=== PATIENT | male | born 1985 | race Caucasian/White ===

== ENCOUNTER 2019-01-25 12:54 | Emergency (ER) | payer MEDICAID, SELFPAY ==
[2019-01-25] VITALS (10 sets, daily range): BP systolic 120–152; BP diastolic 70–88; PULSE 65–87; RESP 12–18; TEMP 36.6; O2SAT 92–99; BMI 37.8
--- NOTE | 2019-01-25 13:24 | RAD_ITS ---
STUDY: X-RAY - ACUTE ABDOMINAL SERIES REASON FOR EXAM: Male, 33 years old. Abdominal pain TECHNIQUE: Single view of the chest. Supine, and erect view(s) of the abdomen were obtained. COMPARISON: None. FINDINGS: The lungs are clear and expanded. Normal size heart. Normal mediastinum and larry. Normal visualized pulmonary arteries. Normal visualized aortic arch and descending thoracic aorta. There is a non-specific bowel gas pattern. The soft tissue structures of the abdomen and pelvis are unremarkable. Normal visualized osseous structures. RAD/Acute Abdomen Inc Chest IMPRESSION: Normal x-ray examination of the chest, abdomen, and pelvis. Electronically Signed: Josiah Peters MD at 14:11 EDT Tel , Service support ,
[2019-01-25 13:34] LABS: Absolute Lymphocyte Count 2.15 X10^3/uL (0.83-4.51); Basophil# 0.05 X10^3/uL; Basophil% 0.5 % (0-1); Eosinophil# 0.14 X10^3/uL; Eosinophils% 1.4 % (0-5); Hematocrit 47.6 % (40-54); Hemoglobin 16.7 g/dL (13.0-16.5); Lymphocyte # 2.15 X10^3/ul (4.0); Lymphocyte % 21.1 % (19-41); Mean Corp Hgb Conc 35.1 g/dL (32-36); Mean Corpuscular Hgb 32.2 pg (27.0-32.0); Mean Corpuscular Volume 91.9 fL (80-94); Mean Platelet Vol. 10.6 fl (6.2-12.0); Monocyte# 0.85 X10^3/uL; Monocyte% 8.3 % (0-10); NRBC Flagged by Analyzer 0 % (0-5); Neutrophil # 6.96 X10^3/uL (2.7-7.7); Neutrophil % 68.4 % (47-70); Platelet Count 330 K/mm3 (150-450); RBC Distribution Width CV 12.5 % (11.6-14.6); RBC Distribution Width SD 42.3 fl (35.1-43.9); Red Blood Count 5.18 M/mm3 (4.6-6.2); White Blood Count 10.2 K/mm3 (4.4-11.0)
[2019-01-25 13:44] LABS: Partial Thromboplast Time 27.1 Seconds (24.1-36.2); Prothrombin Time (Protime)PT. 13.2 SECONDS (11.7-14.9)
[2019-01-25 13:52] LABS: AST(SGOT) 37 U/L (15-37); Alanine Aminotransfer ALT/SGPT 63 U/L (16-61); Albumin, Serum 4.3 g/dL (3.2-5.0); Alkaline Phosphatase 65 U/L (45-117); Anion Gap 7 (5-15); BUN 15 mg/dL (7-18); BUN/Creat Ratio 11.5 RATIO (10-20); Calcium,Total 8.9 mg/dL (8.5-10.1); Chloride 111 mmol/L (98-107); EST Glomerular Filtration Rate 68 mL/min (>60); Est Glom Filt Rate - Afr Amer 82 mL/min (>60); Estimated Creatinine Clearance 100.15 ml/min; Ferritin 116 ng/mL (26-388); Globulin 4.5 g/dL (2.2-4.2); Glucose 106 mg/dL (74-106); Iron 323 ug/dL (65-175); Lipase 95 U/L (73-393); Potassium 3.9 mmol/L (3.5-5.1); Protein, Total 8.8 g/dL (6.4-8.2); Sodium Level 139 mmol/L (136-145)
[2019-01-25 14:00] LABS: Base Excess -6 mmol/L (-2 to +2); Bicarbonate 19.2 mmol/L (22-26); Blood Gas Specimen Type ART; O2 Delivery Device Room Air; PO2 82 mmHG (75-100); SITE R Radial; SO2 96 % (95-99); Time Given 1355; Total Carbon Dioxide 20 mmol/L; pCO2 31.9 mmHg (35-45); pH 7.39 (7.35-7.45)
[2019-01-25 14:11] LABS: Lactic Acid 1.1 mmol/L (0.4-2.0)
--- NOTE | 2019-01-25 16:05 | EKG12_ITS ---
Test Reason : MENTAL HEALTH Blood Pressure : / mmHG Vent. Rate : 054 BPM Atrial Rate : 054 BPM P-R Int : 162 ms QRS Dur : 106 ms QT Int : 428 ms P-R-T Axes : 033 027 020 degrees QTc Int : 405 ms Sinus bradycardia with sinus arrhythmia Otherwise normal ECG Confirmed by GARY DAVEY ([id number]), purchase request editor ASUNCION LOCKE ([id number]) on 01/31/2019 2:11:38 PM Referred By: ANTONIA Confirmed By:GARY DAVEY
--- NOTE | 2019-01-25 16:10 | NURSING ---
NO OLD EKGS
--- NOTE | 2019-01-25 16:48 | ED.DCSUM_ITS ---
- ER Visit Summary Date of Service: 01/25/19 Chief Complaint: Iron overdose History of Present Illness: The patient is a 33 M who presents after ingesting 10 g of iron pills today. Patient barricaded himself in his house. Police were able to convince the patient to come to the emergency department. Patient did have some vomiting after ingesting the pills. EMS reports that the emesis contained pill fragments. Patient denied any suicidal ideations to me. Patient told me that he did it because he wanted to see how it would make him feel. Currently patient admits to some mild dull abdominal pain. EMS denies any hematemesis or coffee-ground emesis. Physical Examination: Vital signs are stable. Patient is afebrile. Patient is in no acute distress. Oral mucosa is pink and moist. Neck is supple. Trachea is midline. There is no JVD noted. Heart was regular rate and rhythm. Lungs are clear and equal bilaterally. Abdomen is soft. Bowel sounds are normal. There is mild diffuse tenderness. There is no rebound or guarding noted. Cranial nerves II through XII are intact. There are no focal motor or sensory deficits noted. Patient does have a flat affect and poor eye contact. Patient has a depressed mood. Test Results: EKG shows sinus rhythm with a rate of 54. There are no acute ST or T wave changes. CBC is normal. Comprehensive metabolic profile shows a total bilirubin that is slightly elevated at 1.1 and an ALT that is slightly elevated at 63. Serum iron level was slightly elevated at 323. This was drawn approximately hour and 20 minutes after the ingestion. Arterial blood gas showed a pH 7.39 with a PCO2 of 31.9 PO2 of 82, bicarb of 19.2, and oxygen saturation of 96% on room air. Acute abdominal x-rays were obtained. There are no radiopaque foreign bodies noted. Emergency Department Course and Treatment: Case was discussed with poison control. They recommended obtaining a 4-hour iron level, a BGT, and the EKG. If the iron level is greater than 500 at 4 hours they recommended giving deferoxamine. They also recommended obtaining acetaminophen and salicylate levels. These were drawn and were normal. Serum alcohol level was normal. Disposition: Care of the patient was turned over to the oncoming physician pending repeat iron level. Impression: 1. Iron overdose This note was generated with [email or web address] software. It may contain incorrect words, spelling, and punctuation that were not noted in review of the chart prior to signing ED Disposition - Plan for ED Patient: Diagnosis: Iron product overdose Referrals: Care Physician,No Primary [Primary Care Provider] -
[2019-01-25 16:54] LABS: Iron 325 ug/dL (65-175)
[2019-01-25 17:00] LABS: Acetaminophen (Tylenol) Level < 10.0 ug/mL (10.0-30.0); Salicylate 2.9 mg/dL (2.8-20.0)
[2019-01-25 17:40] LABS: Bedside Glucose 91 mg/dL (70-110)
[2019-01-25 19:08] LABS: Iron 175 ug/dL (65-175)
[2019-01-25 19:09] LABS: Amphetamine Urine VISTA NEGATIVE (<1000 ng/mL); Barbiturate Urine VISTA NEGATIVE (< 200 ng/mL); Benzodiazepine Urine VISTA NEGATIVE (< 200 ng/mL); Cocaine Urine VISTA NEGATIVE (< 300 ng/mL); Ecstacy Urine VISTA NEGATIVE (< 500 ng/mL); Methadone Urine VISTA NEGATIVE (< 300 ng/mL); PCP Urine VISTA NEGATIVE (< 25 ng/mL); THC Urine VISTA POSITIVE (< 50 ng/mL); Vista UDS pH Range 5
--- NOTE | 2019-01-25 19:21 | CM.ED ---
SOCIAL WORK UPDATED BY DR. BEY, PATIENT IS MEDICALLY CLEARED. CALL TO CRISIS, SPOKE WITH GAIL. SANCHEZ TO BE IN TO EVALUATE PATIENT. SHANTAL CUMMINGS, OUTSIDE SALES ENGINEER, RETORT PRESS OPERATOR.
--- NOTE | 2019-01-25 20:07 | CM.ED ---
SOCIAL WORK DANIEL FROM CRISIS HERE TO ASSESS PATIENT. SHANTAL CUMMINGS, HOUSEKEEPING ASSISTANT, AUDIO PRODUCTION MANAGER.
--- NOTE | 2019-01-25 20:59 | ED.RN ---
SPOKE WITH DR. BEY WHO TOOK OVER CARE OF THIS PT, OKAY TO DISCONTINUE CARDIAC MONITORING.
--- NOTE | 2019-01-25 21:23 | ED.RN ---
WHILE THIS RN WAS IN ANOTHER PTS ROM, THIS PT WALKED OUT OF ED WHILE CRISIS WAS IN ROOM, HIS MOTHER AND SITTER. HRO AWARE.
--- NOTE | 2019-01-25 21:59 | ED.RN ---
PT RETURNED TO ROOM 8 WITH POLICE OFFICERS X 2. PT IS REMORSEFUL FOR LEAVING HOSPITAL. PT STATES HE JUST HAD AN INCREASE IN ANXIETY AND HAD TO LEAVE. PT HAS ANXIETY ABOUT LOOSING S/O, PENDING COURT DATE FOR CHILD SUPPORT. MOM AT BEDSIDE. PT OFFERED AND ACCEPTED NICOTINE PATCH AND REQUESTED SPRITE.
[2019-01-26] VITALS (7 sets, daily range): BP systolic 119; BP diastolic 65–83; PULSE 78–90; RESP 14–18; O2SAT 97–98
--- NOTE | 2019-01-26 08:27 | ED.RN ---
[facility] HERE TO TRANSPORT PATIENT, CARE AND REPORT TO THEM. PT STATUS UNCHANGED. BELONGINGS GIVEN TO [facility].
== END 2019-01-26 08:30 | disposition home or self-care (01) ==
PROVIDERS: Emergency Medicine; Emergency Provider Emergency Medicine
DX: T45.4X4A Poisoning by iron and its compounds, undetermined, initial encounter (principal); R11.2 Nausea with vomiting, unspecified; R10.9 Unspecified abdominal pain; E80.6 Other disorders of bilirubin metabolism; R74.0 Nonspecific elevation of levels of transaminase and lactic acid dehydrogenase [LDH]; Y92.009 Unspecified place in unspecified non-institutional (private) residence as the place of occurrence of the external cause; Z72.0 Tobacco use; Z78.1 Physical restraint status
CPT/HCPCS: 36600; 74022; 80053; 80307; 80320; 80329; 82728; 82803; 82962; 83540; 83605; 83690; 85025; 85610; 85730; 93005; 99285; A4216; G0480

== ENCOUNTER 2020-01-31 19:55 | Emergency (ER) | payer MEDICAID, SELFPAY ==
[2019-01-25 12:54] VITALS: BMI 37.8
[2020-01-31 19:55] VITALS: BP 126/72; PULSE 101; RESP 18; TEMP 36.9; O2SAT 98; BMI 33.8
--- NOTE | 2020-01-31 20:30 | US_ITS ---
STUDY: SCROTUM ULTRASOUND REASON FOR EXAM: Male, 34 years old. RT GROIN PAIN TECHNIQUE: Ultrasound evaluation of the scrotum was performed with color Doppler and static blank-scale imaging. COMPARISON: 02/15/2016 FINDINGS: RIGHT TESTICLE INTRATESTICULAR: There is a normal size of the right testicle. The right testicle measures 4.8 x 3 x 2.4 cm. There is a homogenous echotexture. There is normal arterial and normal venous vascularity. There is no demonstrated right testicular mass or cyst. There are a few tiny microliths of uncertain etiology or significance. EXTRATESTICULAR: The epididymis is normal in size. The epididymis head measures 1.3 x 1.4 x 1.1 cm. There is normal vascularity of the epididymis. There is no demonstrated epididymal cystic structure. There is a small hydrocele. There is no demonstrated varicocele. There is no demonstrated extratesticular mass or cyst. There is a questionable hernia in right groin at the site of pain. LEFT TESTICLE INTRATESTICULAR: There is a normal size of the left testicle. The left testicle measures 4.5 x 3 x 2.4 cm. There is a homogenous echotexture. There is normal arterial and normal venous vascularity. There is no demonstrated left testicular mass or cyst. EXTRATESTICULAR: The epididymis is normal in size. The epididymis head measures 1.3 x 1 x 0.7 cm. There is normal vascularity of the epididymis. There is no demonstrated epididymal cystic structure. There is no demonstrated hydrocele. There is no demonstrated varicocele. There is no demonstrated extratesticular mass or cyst. US/Testicular with Arterial Flow IMPRESSION: No evidence for testicular torsion or mass. Small right hydrocele. Question small hernia in the right inguinal region. This may be further assessed with CT or MRI if indicated Electronically Signed: Carson Ladd MD at 21:39 EDT , Service support ,
--- NOTE | 2020-01-31 21:44 | ED.VIS.GEN ---
History of Present Illness Chief Complaint: Male Pain/Injury Informant: Patient Narrative: 34-year-old male with no past medical history presents for right groin pain. States it began 2 days ago. Intermittent in nature. Denies any nausea or vomiting. Denies any change in his urinary habits. Denies any trauma. Patient went to urgent care was sent here for scrotal ultrasound. Past Medical History - Allergies and Home Meds Allergies/Adverse Reactions: Allergies No Known Allergies Allergy (Verified 01/31/20 19:58) Primary Care Physician: Care Physician,No Primary [Primary Care Provider] - Past Medical History: None Surgical History: no surgical history Smoking Status: Current every day smoker Alcohol: None Drugs: None Review of Systems General: Denies: Chills, Fever, Sweats Eyes: Denies: Visual changes - bilaterally, Diplopia ENT: Denies: Rhinorrhea, Sore throat Cardiovascular: Denies: Chest pain, Palpitations Respiratory: Denies: Dyspnea, Cough, Dyspnea on exertion Gastrointestinal: Denies: Abdominal pain, Nausea, Vomiting, Diarrhea, Melena, Hematochezia Genitourinary: Reports: - - Scrotal pain. Denies: Dysuria, Hematuria, Frequency Musculoskeletal: Denies: Back pain, Extremity Pain Skin: Denies: Rash, Wounds Neurological: Denies: Headache, Weakness, Numbness Physical Exam Vital Signs/Narrative: Vital Signs Temp Pulse Resp BP Pulse Ox 01/31/20 19:55 98.4 F 101 H 18 126/72 H 98 Inital Vital Signs reviewed: Yes General: Well nourished, Well developed, No Acute Distress Head: Normocephalic, Atraumatic Eyes: Perrl, EOMI ENT: Moist mucous membranes, No rhinorrhea Neck: Supple, Nontender Cardiovascular: Regular rate, Regular rhythm, No murmurs Respiratory: No distress, CTA bilaterally, Chest nontender Abdomen: Soft, Nontender, Nondistended, Normal bowel sounds, - - Possible very small inguinal hernia palpated which was easily reducible. : - - Normal inspection of the penis and scrotum. Tenderness to palpation over the right scrotum. No overlying skin changes. Back: Nontender, Normal Inspection Extremities: Nontender, No edema Skin: Normal color, No rash Neurological: Alert, Oriented x3, Cranial nerves II-XII grossly intact, Normal Strength, Normal Sensation Psychological: Normal affect, Normal Mood Diagnostic/Tx/Re-eval Clinical Impression(s) from Imaging Studies Testicular Ultrasound 01/31/20 20:30 IMPRESSION: No evidence for testicular torsion or mass. Small right hydrocele. Question small hernia in the right inguinal region. This may be further assessed with CT or MRI if indicated Electronically Signed: Carson Ladd MD at 21:39 EDT , Service support , - Medical Decision Making Appears well nontoxic. Ultrasound shows possible small hernia without testicular pathology. Patient will be given general surgery follow-up and is advised on ice and NSAIDs. Patient agreeable and discharged home in stable condition. Impression: 1. Right inguinal hernia ED Disposition - Plan for ED Patient: Disposition: Home or Assisted Living Instructions: ED Hernia Inguinal Referrals: Loy Buck MD [STAFF PHYSICIAN] -
== END 2020-01-31 21:57 | disposition home or self-care (01) ==
PROVIDERS: Emergency Provider Emergency Medicine
DX: K40.90 Unilateral inguinal hernia, without obstruction or gangrene, not specified as recurrent (principal); F17.200 Nicotine dependence, unspecified, uncomplicated
CPT/HCPCS: 76870; 93976; 99281; 99282

== ENCOUNTER → 2024-06-28 | Outpatient (CLI) | payer MEDICAID, SELFPAY ==
[2024-06-28 12:46] LABS: Absolute Lymphocyte Count 2.61 X10^3/uL (0.83-4.51); Absolute Neutrophil Count 5.1 X10^3/uL (2.0-7.7); Basophil# 0.07 X10^3/uL; Basophil% 0.8 % (0-1); Eosinophil# 0.31 X10^3/uL; Eosinophils% 3.5 % (0-5); Hematocrit 44.4 % (40-54); Hemoglobin 14.9 g/dL (13.0-16.5); Lymphocyte # 2.61 X10^3/ul (0.83-4.51); Lymphocyte % 29.8 % (19-41); Mean Corp Hgb Conc 33.6 g/dL (32-36); Mean Corpuscular Hgb 30.2 pg (27.0-32.0); Mean Corpuscular Volume 90.1 fL (80-94); Mean Platelet Vol. 10.7 fl (6.2-12.0); Monocyte# 0.65 X10^3/uL; Monocyte% 7.4 % (0-10); NRBC Flagged by Analyzer 0 % (0-5); Neutrophil # 5.09 X10^3/uL (2.7-7.7); Neutrophil % 58.2 % (47-70); Platelet Count 341 K/mm3 (150-450); RBC Distribution Width CV 13.1 % (11.6-14.6); RBC Distribution Width SD 42.9 fl (35.1-43.9); Red Blood Count 4.93 M/mm3 (4.6-6.2); White Blood Count 8.8 K/mm3 (4.4-11.0)
[2024-06-28 13:00] LABS: AST(SGOT) 378 U/L (15-37); Alanine Aminotransfer ALT/SGPT 108 U/L (16-61); Albumin, Serum 4.1 g/dL (3.2-5.0); Alkaline Phosphatase 68 U/L (45-117); Anion Gap 8 (5-15); BUN 12 mg/dL (7-18); BUN/Creat Ratio 12.6 RATIO (10-20); Calcium,Total 9.2 mg/dL (8.5-10.1); Chloride 108 mmol/L (98-107); Creatinine, Serum 0.95 mg/dL (0.70-1.30); EST Glomerular Filtration Rate 94 mL/min (>60); Est Glom Filt Rate - Afr Amer 114 mL/min (>60); Glucose 88 mg/dL (74-106); Potassium 4.2 mmol/L (3.5-5.1); Protein, Total 8.1 g/dL (6.4-8.2); Sodium Level 138 mmol/L (136-145)
[2024-06-28 13:09] LABS: Vitamin B12 482 pg/mL (211-911); Vitamin D,25 Hydroxy 27.3 ng/mL
[2024-06-28 13:53] LABS: Hemoglobin A1c 5.4 % (3.8-5.6)
== END | disposition home or self-care (01) ==
LOC: VSLAB 11:48
DX: R53.83 Other fatigue (principal); Z13.1 Encounter for screening for diabetes mellitus
CPT/HCPCS: 36415; 80053; 82306; 82607; 83036; 84443; 85025

== ENCOUNTER → 2024-08-09 | Outpatient (CLI) | payer MEDICAID, SELFPAY ==
[2024-08-09 17:20] LABS: Hematocrit 45.6 % (40-54); Hemoglobin 15.6 g/dL (13.0-16.5); Mean Corp Hgb Conc 34.2 g/dL (32-36); Mean Corpuscular Hgb 31.1 pg (27.0-32.0); Mean Platelet Vol. 10.4 fl (6.2-12.0); Platelet Count 371 K/mm3 (150-450); RBC Distribution Width SD 43.4 fl (35.1-43.9); Red Blood Count 5.01 M/mm3 (4.6-6.2); White Blood Count 10.7 K/mm3 (4.4-11.0)
[2024-08-09 18:58] LABS: ALB/GLOB Ratio 1.5 RATIO (0.9-2.4); AST(SGOT) 21 U/L (<=37); Alanine Aminotransfer ALT/SGPT 22 U/L (<=46); Albumin, Serum 4.8 g/dL (3.5-5.0); Alkaline Phosphatase 64 U/L (40-129); Anion Gap 14 (5-15); BUN 9 mg/dL (4-19); BUN/Creat Ratio 8.6 RATIO (10-20); Calcium,Total 9.8 mg/dL (7.6-11.0); Carbon Dioxide 22.3 mmol/L (21.0-32.0); Chloride 103 mmol/L (98-108); Creatinine, Serum 1.04 mg/dL (0.70-1.20); EST Glomerular Filtration Rate 95 (>60); Globulin 3.2 g/dL (2.2-4.2); Glucose 66 mg/dL (70-99); HIV Nonreactive (Nonreactive); Hepatitis B Surface Antibody Nonreactive; Hepatitis B Surface Antigen Nonreactive (Nonreactive); Potassium 4.6 mmol/L (3.3-5.1); Protein, Total 7.9 g/dL (5.9-8.4); Sodium Level 139 mmol/L (133-145)
[2024-08-16 12:08] LABS: HCV Quant. RNA PCR HCV Not Detected IU/mL (.)
== END | disposition home or self-care (01) ==
LOC: VSLAB 15:41
PROVIDERS: Visit Provider Family Medicine
DX: F11.20 Opioid dependence, uncomplicated (principal)
CPT/HCPCS: 36415; 80053; 85027; 86703; 86706; 87340; 87522; 87902